=== PATIENT | male | born 1965 | race Two or more races ===

== ENCOUNTER 2017-01-28 08:18 | Observation (INO) | payer MEDICAID ==
[2017-01-28] MEDS ORDERED: IOPAMIDOL 370 (76%) 100 ML VIAL IV ONE (08:19)
[2017-01-28] MEDS ORDERED: TETANUS,DIPHTHERIA TOXOID SYRINGE IM V ONE (09:24)
[2017-01-28] MEDS ORDERED: ONDANSETRON 4 MG/2ML 2 ML VIAL ONE (09:24)
[2017-01-28] MEDS ORDERED: SODIUM CHLORIDE 0.9% 1,000 ML ONE (09:24)
[2017-01-28] MEDS ORDERED: KETOROLAC TROMETHAMINE 30 MG/ML 1 ML VIAL ONE (09:24)
[2017-01-28 09:36] LABS: ABSOLUTE NEUTROPHIL COUNT 6.7 K/mm3 (1.8-7.7); BASO % 0.3 % (0.2-1.0); EOS # 0.2 (0.0-0.5); EOS % 2.6 % (0.9-2.9); HEMATOCRIT 42.2 % (32.0-52.0); HEMOGLOBIN 13.9 gm/l (14.0-18.0); IMM NEUT% 0.3 % (0-1); LYMPH # 1.7 (1.0-4.8); LYMPH % 18.4 % (15-45); MEAN CELL VOLUME 88.8 fl (80.0-94.0); MEAN CORPUSCULAR HEMOGLOBIN 29.3 pg (27.0-31.0); MEAN CORPUSCULAR HGB CONC 32.9 g/dl (33.0-37.0); MEAN PLATELET VOLUME 9.6 fl (7.4-10.4); MONO # 0.7 (0.0-0.8); NEUT % 71.4 % (43-75); PLATELET COUNT 287 K/mm3 (130-400); RED CELL DISTRIBUTION WIDTH 12.8 % (11.5-14.5)
[2017-01-28 09:46] LABS: URINE APPEARANCE CLEAR; URINE BILIRUBIN NEGATIVE (NEGATIVE); URINE BLOOD NEGATIVE (NEGATIVE); URINE COLOR YELLOW; URINE GLUCOSE (UA) NEGATIVE (NEGATIVE); URINE LEUKOCYTE ESTERASE NEGATIVE (NEGATIVE); URINE NITRITE NEGATIVE (NEGATIVE); URINE PROTEIN NEGATIVE (NEGATIVE); URINE UROBILINOGEN NORMAL (0-1 mg/dl)
[2017-01-28 09:48] LABS: ALB/GLOB RATIO 1.4 (>1.0); CALCIUM 9.5 mg/dL (8.6-10.3)
--- NOTE | 2017-01-28 10:10 | CT ---
EXAMINATION: Contrast enhanced CT scan of the abdomen and pelvis. CLINICAL INDICATION: Abdominal pain. COMPARISON: None TECHNIQUE: Oral contrast: None Following uneventful administration of 100 mL of Isovue 300, intravenously axial images were acquired from just above the domes of the diaphragm to the iliac crest. A CT scan of the pelvis was also obtained from the iliac crest to the initial tuberosities. Stacked axial, sagittal, and coronal images were reviewed. Findings: Abdomen CT: (Contrast-enhanced): The lung bases exhibit mild basilar atelectasis. There is some respiratory/motion artifact which can diminish resolution. Scattered foci of peripheral pleural/parenchymal scarring are suggested. There is no effusion. There is evidence of prior granulomatous infection. Punctate calcifications are noted within the posterior segment of the right lobe of the liver. No discrete hepatic lesion is identified. A small 8 mm cyst is suggested near the confluence of the hepatic veins The gallbladder is within normal limits. There is no evidence of biliary obstruction. Numerous calcifications are noted within the spleen compatible prior granulomatous infection. There is no worrisome mass or splenomegaly. The pancreas is normal in size and contours. No inflammatory stranding is identified. The pancreatic duct is unremarkable. The adrenals are unremarkable. The left kidney exhibits a small posterior upper pole scar. Adjacent cyst is also noted which measures 7 mm in diameter. No worrisome mass or hydronephrosis is identified. There is no nephrolithiasis. The right kidney is unremarkable. The abdominal aorta unremarkable. There is no retroperitoneal adenopathy identified. The stomach is unremarkable. The visualized segments of small and large bowel are within normal limits. The osseous structures exhibit no displaced fracture. No lytic or blastic lesions are identified. Pelvic CT: (Contrast -enhanced): The distal ureters and bladder are unremarkable. Prostate is generous in size. Central calcifications are noted. No adenopathy is identified. The distal abdominal aorta and iliac vessels are within normal limits. There is inflammatory stranding involving the proximal sigmoid colon. There is a possible small microperforation near this inflammatory process. No disseminated free air or abscess is identified. The appendix is unremarkable. No displaced fractures are identified. There are no gross osteolytic or blastic lesions. There is a fat-containing left inguinal hernia. No bowel containment or incarceration is identified. IMPRESSION: 1. Proximal sigmoid diverticulitis currently without evidence of abscess. There is a possible very small adjacent microperforation. 2. Small amount of nonspecific fluid in the right inferior paracolic gutter. 3. Normal appendix. 4. Evidence of prior granulomatous infection as described above. 5. Parenchymal scar posterior superior aspect left kidney. Findings were discussed with Dr. Coates at 10:00 AM 01/28/2017
[2017-01-28] MEDS ORDERED: PIPERACILLIN-TAZO PREMIX BAG 50 ML IV ONE (10:15)
[2017-01-28] MEDS ORDERED: METRONIDAZOLE 500 MG/NS 100 ML 100 ML IV ONE (10:15)
[2017-01-28] MEDS ORDERED: OXYCODONE HCL 5 MG TABLET PO PRN (11:03)
[2017-01-28] MEDS ORDERED: ONDANSETRON 4 MG/2ML 2 ML VIAL IV PRN (11:03)
[2017-01-28] MEDS ORDERED: MORPHINE SULFATE 2 MG/ML SYRINGE IV PRN (11:03)
[2017-01-28] MEDS ORDERED: MENTHOL/CETYLPYRD 1 EACH LOZENGE PO PRN (11:03)
[2017-01-28] MEDS ORDERED: ACETAMINOPHEN 325 MG TABLET PO PRN (11:03)
[2017-01-28] MEDS ORDERED: MAG HYDROX/AL HYDROX/SIMETH 30 ML UDCUP PO PRN (11:03)
[2017-01-28] MEDS ORDERED: BLISTEX LIPSTICK 1 EACH TP PRN (11:03)
[2017-01-28] MEDS ORDERED: KETOROLAC TROMETHAMINE 30 MG/ML 1 ML VIAL IV PRN (11:03)
[2017-01-28] MEDS ORDERED: DIPHENHYDRAMINE HCL 25 MG CAPSULE PO PRN (11:03)
[2017-01-28] MEDS: PIPERACILLIN-TAZO PREMIX BAG 3.375 G in Premix (D5W) 50 ml 1 EACH IV SCH ×3 (11:46→23:15)
[2017-01-28] MEDS ORDERED: MORPHINE SULFATE 4 MG/ML SYRINGE IV PRN (11:48)
[2017-01-28] MEDS ORDERED: MORPHINE SULFATE 10 MG/ML SYRINGE IV PRN (11:49)
[2017-01-28] MEDS ORDERED: PUMP TUBING ONE (11:56)
[2017-01-28] MEDS: LACTATED RINGERS 1,000 ML IV SCH (12:02)
[2017-01-28 13:21] VITALS: BMI 29.0
--- NOTE | 2017-01-28 19:34 | CONS ---
ASTER WYATT [id number] DATE: January 28, 2017 CHIEF COMPLAINT: Abdominal pain. HISTORY OF PRESENT ILLNESS: This is a 51-year-old male who presented to the emergency room with abdominal pain that started about 4:00 a.m. He reports that his abdomen has felt bloated. His pain is localized in the left lower quadrant. He has not had any fever but has had sweats. His pain was getting worse through the day, and he left work because of it. He had never had pain like this before. He had no diarrhea. He noted no blood in his stools. He was evaluated in the emergency room, and a CT scan was obtained. The CT scan showed sigmoid diverticulitis with an area of air adjacent to the colon with possible microperforation. There is fluid noted in the right pericolic gutter. Because of this, surgery was consulted. PAST MEDICAL HISTORY: None. PAST SURGICAL HISTORY: None. CURRENT MEDICATIONS: None. ALLERGIES: NONE KNOWN. FAMILY HISTORY: No family history of intestinal cancers. SOCIAL HISTORY: He drinks beer on holidays. Denies tobacco or illicit drug use. REVIEW OF SYSTEMS: CONSTITUTIONAL: Possible chills. EYES: No complaints. ENT: No complaints. PULMONARY: No complaints. CARDIAC: No complaints. GASTROINTESTINAL: As above. GENITOURINARY: No complaints. MUSCULOSKELETAL: No complaints. NEUROLOGIC: No complaints. ENDOCRINE: No complaints. HEMATOLOGIC: No complaints. PSYCHIATRIC: No complaints. PHYSICAL EXAM: VITAL SIGNS: Temperature is 97.7, pulse 54, blood pressure 150/92, respirations 14, O2 sat is 96% on room air. GENERAL: He is awake, alert, appears in no distress. HEENT: Head atraumatic, normocephalic. Pupils are equal. Sclera nonicteric. Oropharynx no erythema, no exudates. He does have some loose teeth. NECK: Is supple, without lymphadenopathy or thyromegaly. LUNGS: Clear to auscultation. Normal respiratory effort. HEART: Regular rate and rhythm, no murmurs heard. ABDOMEN: Soft, nondistended. He has tenderness to palpation on the left lower quadrant. He does not have rebound tenderness or involuntary guarding. There does seem to be some fullness in that area but not a clearly defined mass. RECTAL: Not performed by me. EXTREMITIES: Without cyanosis, clubbing or edema. LABORATORIES: White blood cell count 9.4, hemoglobin 13.9, platelets 287. Sodium 136, potassium 4.6, chloride 104, CO2 is 26, BUN is 24. creatinine 0.7, glucose 106. Liver function tests are normal. Amylase and lipase are normal. ASSESSMENT: Sigmoid diverticulitis with possible microperforation. PLAN: Through an dean of girls, I described the process of diverticulosis and diverticulitis. We talked about the risks of continued leak of air and stool with bacteria causing abscess or peritonitis. We have started him on intravenous antibiotics in the absence of clear peritoneal signs other than pain. If he improves, we may consider discharge tomorrow and oral antibiotics. If he is not improving, we may consider followup CT scan to determine if there is a developing abscess. I recommended going forward that he have a colonoscopy down the road after his acute symptoms have completely resolved. We talked about the possibility of recurring symptoms necessitating consideration of a colectomy. At this point, I see no indications for acute surgical intervention. [id number]
[2017-01-29] MEDS: LACTATED RINGERS 1,000 ML IV SCH (01:34)
[2017-01-29] MEDS: PIPERACILLIN-TAZO PREMIX BAG 3.375 G in Premix (D5W) 50 ml 1 EACH IV SCH (05:14)
[2017-01-29 06:45] LABS: HEMATOCRIT 40.1 % (32.0-52.0); HEMOGLOBIN 13.1 gm/l (14.0-18.0); MEAN CELL VOLUME 87.7 fl (80.0-94.0); MEAN CORPUSCULAR HEMOGLOBIN 28.7 pg (27.0-31.0); MEAN CORPUSCULAR HGB CONC 32.7 g/dl (33.0-37.0); RED CELL DISTRIBUTION WIDTH 12.7 % (11.5-14.5)
[2017-01-29 07:06] LABS: CALCIUM 9.1 mg/dL (8.6-10.3)
[2017-01-29 07:14] VITALS: BP 135/90
--- NOTE | 2017-01-29 08:32 | PDOC43 ---
- Subjective Subjective: Reports Pain Tolerable, Denies Nausea, Denies Fever - Objective Vital Signs Temperature 98.2 F 01/29/17 07:14 Pulse Rate 50 01/29/17 07:14 Respiratory Rate 15 01/29/17 07:14 Blood Pressure 135/90 01/29/17 07:14 O2 Saturation by Pulse Oximetry 98 01/29/17 07:14 Oxygen Delivery Method Room Air Oxygen Flow Rate 0 Laboratory 01/29/17 06:15 01/29/17 06:15 01/29/17 06:15 RBC 4.57 L MCHC 32.7 L Active Medication Orders Category Date Time Status Morphine Sulfate Med 01/28/17 11:48 Active 1 - 4 mg IV Q1H PRN Morphine Sulfate Med 01/28/17 11:49 Active 1 - 4 mg IV Q1H PRN Sodium Chloride 0.9% Flush [Normal Saline 10ml Flush] Med 01/28/17 17:00 Active 10 ml IV Q8HR Intake and Output 01/28/17 01/29/17 01/30/17 06:59 06:59 06:59 Intake Total 3170 Output Total 1450 Balance 1720 General: Alert, Oriented x3 Abdomen: Soft, Tenderness (left lower quadrant. Better. No rebound.), Non- Distended Psych/Mental Status: Normal Affect - Assessment/ Plan (1) Diverticulitis large intestine Qualifiers: Diverticulitis bleeding: without bleeding Diverticulitis complication: with perforation Qualifier Code: (K57.20) Diverticulitis of large intestine with perforation and abscess without bleeding Status: AcuteAssessment/ Plan : Improving. Stable for discharge on oral antibiotics. Follow-up in office in 2 weeks. We discussed need for follow-up colonoscopy.
== END 2017-01-29 09:15 | disposition home or self-care (01) ==
LOC: ED 08:18 → MS 11:23
PROVIDERS: ADMIT Surgery; ATTEND Surgery
DX: K57.20 Diverticulitis of large intestine with perforation and abscess without bleeding (principal); Z23 Encounter for immunization
CPT/HCPCS: 90714; 83690; 82150; 85027; 85025; 82550; 80048; 80053; 81003; 36415; 74177; 90471; 96375 ×2; 99285 ×2; 96361; 96365; 96367; J1885; J2405; J2543; J7120 ×2; J7030; Q9967

== ENCOUNTER 2017-02-03 19:20 | Emergency (ER) | payer MEDICAID ==
[2017-02-03] MEDS ORDERED: IOPAMIDOL 300 (61%) 100 ML VIAL IV ONE (19:21)
[2017-02-03 20:26] LABS: SPECIFIC GRAVITY 1.025 (1.001-1.030); URINE BILIRUBIN NEGATIVE (NEGATIVE); URINE BLOOD NEGATIVE (NEGATIVE); URINE GLUCOSE (UA) NEGATIVE (NEGATIVE); URINE LEUKOCYTE ESTERASE TRACE (NEGATIVE); URINE NITRITE NEGATIVE (NEGATIVE); URINE PROTEIN TRACE (NEGATIVE); URINE UROBILINOGEN NORMAL (0-1 mg/dl)
[2017-02-03 20:27] LABS: URINE APPEARANCE CLEAR; URINE COLOR YELLOW
[2017-02-03 20:37] LABS: URINE RBC RARE /hpf; URINE WBC 0-2 /hpf
[2017-02-03 20:38] LABS: URINE BACTERIA 0; URINE EPITHELIAL CELLS 0 /hpf
[2017-02-03 21:23] LABS: ABSOLUTE NEUTROPHIL COUNT 5.1 K/mm3 (1.8-7.7); BASO % 0.4 % (0.2-1.0); EOS # 0.2 (0.0-0.5); EOS % 2.2 % (0.9-2.9); HEMOGLOBIN 14.7 gm/l (14.0-18.0); IMM NEUT% 0.3 % (0-1); LYMPH # 1.5 (1.0-4.8); LYMPH % 20.5 % (15-45); MEAN CELL VOLUME 86.6 fl (80.0-94.0); MEAN CORPUSCULAR HEMOGLOBIN 28.9 pg (27.0-31.0); MEAN CORPUSCULAR HGB CONC 33.4 g/dl (33.0-37.0); MEAN PLATELET VOLUME 9.4 fl (7.4-10.4); MONO # 0.5 (0.0-0.8); MONO % 6.6 % (4-12); PLATELET COUNT 325 K/mm3 (130-400); RED CELL DISTRIBUTION WIDTH 12.2 % (11.5-14.5)
[2017-02-03 21:44] LABS: ALB/GLOB RATIO 1.5 (>1.0); ALBUMIN 4.1 gm/dL (3.5-5.7); CALCIUM 9.4 mg/dL (8.6-10.3)
--- NOTE | 2017-02-04 08:38 | CT ---
ABD/PELVIS W/ CON COMPARISON: CT abdomen and pelvis with contrast HISTORY: Left lower quadrant abdominal pain. Technique: No oral contrast per Intravenous injection 100 mL Isovue 370. Using a [employer] [address] scanner, images were obtained from the diaphragm to the floor the pelvis. An automated dose reduction technique was used to minimize patient radiation dose. Dose information: CTDIvol (mGy): 9.60 DLP(mGycm): 490.70 FINDINGS: Lung bases: Normal. Inferior mediastinum and heart: Normal. Liver: In the right lobe next to the inferior vena cava, 7.4 mm low-attenuation nodule, too small to characterize. Gallbladder:Normal. Bile ducts: Normal. Pancreas: Normal. Spleen: Multiple coarse calcifications. Adrenal glands: Normal. Kidneys: Normal right kidney. In the medial upper pole of left kidney, indentation and 7.4 mm cyst. Ureters: Normal Urinary bladder: Normal. Prostate gland and seminal vesicles: Enlarged prostate gland with dystrophic calcification. Blood vessels: Normal Lymph nodes: Normal Stomach: Normal Duodenum: Normal Small intestine: Normal Appendix: Normal Colon: No diverticulitis. Anus: Normal. Abdominal wall and supporting musculature: Left inguinal hernia containing a small amount of fat. Bones: Normal IMPRESSION: 1. No evidence of diverticulitis. Normal-appearing anus and perianal soft tissues. 2. Incidental findings include 7.4 mm nodule in the right lobe of the liver, too small to characterize, splenic ossified granulomas, simple cyst and scar in the upper pole of the left kidney, prostate gland enlargement with dystrophic calcification, and small left inguinal hernia containing fat. Preliminary report by [facility] radiologist Zachariah Reid MD 02/03/2017 at 22:49
== END 2017-02-03 23:44 | disposition home or self-care (01) ==
LOC: ED 19:20
DX: K57.92 Diverticulitis of intestine, part unspecified, without perforation or abscess without bleeding (principal)